=== PATIENT | male | born 2000 | race Two or more races ===

== ENCOUNTER 2024-07-21 15:47 | Inpatient (IN) | payer MEDICAID ==
[~2024-07-21] VITALS: Ht 188 cm; Wt 79.4 kg
[2024-07-21] MEDS ORDERED: HALOPERIDOL 5 MG TABLET PO PRN (19:30)
[2024-07-21] MEDS: INFLUENZA VIRUS VACCINE TVS (6MO+) 2024-25/PF 45 MCG/0.5 ML SYRINGE IM. ONE (22:15)
[2024-07-21 22:55] VITALS: BP 120/66; PULSE 64; RESP 18; TEMP 98.3; O2SAT 97
[2024-07-21] MEDS ORDERED: PROMETHAZINE HCL 25 MG TABLET PO PRN (23:00)
[2024-07-21] MEDS ORDERED: LOPERAMIDE HCL 2 MG CAPSULE PO PRN (23:00)
[2024-07-21] MEDS ORDERED: MAG HYDROX/ALUMINUM HYD/SIMETH ES 30 ML SUSPENSION UDCUP PO PRN (23:00)
[2024-07-21] MEDS ORDERED: MAGNESIUM HYDROXIDE SUSPENSION 30 ML UDCUP PO PRN (23:00)
[2024-07-21] MEDS ORDERED: HydrOXYzine PAMOATE 50 MG CAPSULE PO PRN (23:00)
[2024-07-21] MEDS ORDERED: TUBERCULIN, PURIFIED PROTEIN DERIVATIVE 5 TU/0.1 ML SYRINGE ID ONE (23:00)
[2024-07-21] MEDS ORDERED: GuaiFENesin/D-METHORPHAN [SUGAR-FREE] 200-20MG/10 ML SYRUP UDCUP PO PRN (23:00)
[2024-07-21] MEDS ORDERED: ACETAMINOPHEN 325 MG TABLET PO PRN (23:00)
[2024-07-22 08:06] VITALS: BP 106/67; PULSE 71; RESP 18; TEMP 97.5; O2SAT 98
[2024-07-22] MEDS: FOLIC ACID 1 MG TABLET PO SCH (08:51)
[2024-07-22] MEDS: FLUoxetine HCL 20 MG CAPSULE PO SCH (08:51)
[2024-07-22] MEDS: MULTIVITAMINS WITH MINERALS, THERAPEUTIC TABLET PO SCH (08:51)
[2024-07-22] MEDS: THIAMINE 100 MG TABLET PO SCH (08:51)
[2024-07-22] MEDS: NALTREXONE HCL 50 MG TABLET PO SCH (08:52)
[2024-07-22] MEDS: OMEGA-3/DHA/EPA/FISH OIL 1,000 MG CAPSULE PO SCH (08:52)
[2024-07-22] MEDS: LORazepam 2 MG TABLET PO PRN (12:32)
[2024-07-22 20:06] VITALS: BP 120/84; PULSE 92; RESP 16; TEMP 98.5; O2SAT 97
[2024-07-22] MEDS: DIVALPROEX SODIUM 500 MG ER TABLET PO SCH (20:21)
[2024-07-22] MEDS: OLANZapine 5 MG RAPDIS TABLET PO SCH (20:21)
[2024-07-22] MEDS: MELATONIN 5 MG TABLET PO SCH (20:21)
[2024-07-22] MEDS: OLANZapine 5 MG RAPDIS TABLET PO PRN (22:12)
[2024-07-22] MEDS: OLANZapine 10 MG RAPDIS TABLET PO SCH (22:19)
[2024-07-23] MEDS: ZOLPIDEM TARTRATE 10 MG TABLET PO PRN (00:37)
[2024-07-23 08:10] VITALS: BP 113/81; PULSE 94; RESP 18; TEMP 96.7; O2SAT 99
[2024-07-23 20:00] VITALS: BP 123/71; PULSE 82; RESP 18; TEMP 96.8; O2SAT 99
[2024-07-24 08:22] VITALS: BP 110/62; PULSE 62; RESP 19; TEMP 98; O2SAT 97
[2024-07-24] MEDS: FLUoxetine HCL 20 MG CAPSULE PO SCH (08:38)
[2024-07-24 09:20] LABS: ALCOHOL, URINE DRUG SCREEN NEGATIVE (NEGATIVE); AMPHET/METH SCREEN,URINE NEGATIVE (NEGATIVE); BARBITURATE SCREEN, URINE NEGATIVE (NEGATIVE); BENZODIAZEPINES SCREEN,URINE NEGATIVE (NEGATIVE); CANNABINOID SCREEN,URINE NEGATIVE (NEGATIVE); COCAINE SCREEN,URINE NEGATIVE (NEGATIVE); METHADONE SCREEN, URINE NEGATIVE (NEGATIVE); OPIATE SCREEN,URINE NEGATIVE (NEGATIVE); PHENCYCLIDINE SCREEN,URINE NEGATIVE (NEGATIVE)
[2024-07-24 09:23] LABS: APPEARANCE,URINE CLEAR (CLEAR); BILIRUBIN,URINE NEGATIVE (NEGATIVE); COLOR,URINE LIGHT YELLOW (YELLOW); GLUCOSE, URINE (UA) NEGATIVE (NEGATIVE); KETONES,URINE NEGATIVE (NEGATIVE); LEUKOCYTE ESTERASE ,URINE NEGATIVE (NEGATIVE); NITRATE,URINE NEGATIVE (NEGATIVE); OCCULT BLOOD,URINE NEGATIVE (NEGATIVE); PH,URINE 7.5 (5.0-8.0); PROTEIN,URINE NEGATIVE (NEGATIVE); UROBILINOGEN,URINE <=1.0 mg/dL (<=1.0)
[2024-07-24 09:26] LABS: PH,URINE DRUG SCREEN 7.5 (5.0-8.0)
[2024-07-24 20:00] VITALS: BP 121/65; PULSE 86; RESP 18; TEMP 96.9; O2SAT 97
[2024-07-25 08:22] VITALS: BP 109/67; PULSE 76; RESP 17; TEMP 97.5; O2SAT 96
[2024-07-25] MEDS: GABAPENTIN 300 MG CAPSULE PO SCH (17:22)
[2024-07-25 20:11] VITALS: BP 129/68; PULSE 78; RESP 16; TEMP 96.2; O2SAT 98
[2024-07-25] MEDS: ESZOPICLONE 3 MG TABLET PO PRN (20:17)
[2024-07-26 08:23] VITALS: BP 113/62; PULSE 77; RESP 17; TEMP 97.2; O2SAT 96
[2024-07-26 20:37] VITALS: BP 127/77; PULSE 74; RESP 18; TEMP 97.3; O2SAT 97
[2024-07-27 08:06] VITALS: BP 106/60; PULSE 74; RESP 17; TEMP 98.1; O2SAT 95
[2024-07-27 20:09] VITALS: BP 124/85; PULSE 80; RESP 18; TEMP 97.7; O2SAT 96
[2024-07-28 08:06] VITALS: BP 111/62; PULSE 78; RESP 18; TEMP 97.8; O2SAT 96
[2024-07-28 21:03] VITALS: BP 120/68; PULSE 81; RESP 18; TEMP 97.6; O2SAT 96
[2024-07-29 08:05] VITALS: BP 119/76; PULSE 77; RESP 16; TEMP 98.1; O2SAT 97
[2024-07-29] MEDS: FLUoxetine HCL 20 MG CAPSULE PO SCH (08:33)
[2024-07-30 10:12] VITALS: BP 119/74; PULSE 80; RESP 18; TEMP 96.8; O2SAT 97
[2024-07-30] MEDS ORDERED: OLAN10TA26 PO (15:33)
[2024-07-30] MEDS ORDERED: MELA5TAB40 PO (15:33)
[2024-07-30] MEDS ORDERED: OMEG100033 PO (15:33)
[2024-07-30] MEDS ORDERED: FLUO-418 PO (15:33)
[2024-07-30] MEDS ORDERED: DIVA-153 PO (15:33)
[2024-07-30] MEDS ORDERED: NALT50TA33 PO (15:33)
[2024-07-30] MEDS ORDERED: GABA-1181 PO (15:33)
== END 2024-07-30 17:00 | disposition home or self-care (01) | DRG 750 ==
LOC: B2S 19:20
PROVIDERS: ADMIT Psychiatry & Neurology Psychiatry; ATTEND Psychiatry & Neurology Psychiatry
PROC: GZHZZZZ Group Psychotherapy (ICD-10-PCS; principal; 2024-07-21)
PROC: GZ51ZZZ Individual Psychotherapy, Behavioral (ICD-10-PCS; 2024-07-21)
DX: F25.0 Schizoaffective disorder, bipolar type (principal); G93.41 Metabolic encephalopathy; R45.851 Suicidal ideations; F17.200 Nicotine dependence, unspecified, uncomplicated; J44.9 Chronic obstructive pulmonary disease, unspecified; F15.90 Other stimulant use, unspecified, uncomplicated; F41.9 Anxiety disorder, unspecified
CPT/HCPCS: 80307; 81003